=== PATIENT | female | born 1995 | race Caucasian/White ===

== ENCOUNTER 2019-03-08 19:47 | Emergency (ER) | payer SELFPAY ==
--- NOTE | 2019-03-08 20:46 | ER ---
Nurse's Notes [facility] Name: Lucinda Chaudhari Age: 23 yrs Sex: Female : 1995 Arrival Date: 03/08/2019 Time: 19:50 Bed 15 Private MD: Diagnosis: Otitis media, unspecified, right ear;Cough Presentation: 03/08 19:54 Presenting complaint: Patient states: OOT meds at noon. pt c/o "clogged ears X3 days" ak1 pain to bilateral ears started today. 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 Transition of care: patient was not received from another setting of care. Onset of symptoms is unknown. Risk Assessment: Do you want to hurt yourself or someone else? Patient reports no desire to harm self or others. Care prior to arrival: None. 19:54 Method Of Arrival: Ambulatory ak1 19:54 Acuity: PROMISE 4 ak1 Triage Assessment: 19:55 General: Appears in no apparent distress. Behavior is calm, cooperative. ak1 19:56 Pain: Complains of pain in right ear and left ear. 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 LMP 10/2018 ak1 Historical: - Allergies: 19:55 No Known Allergies; ak1 - Home Meds: 19:55 None [Active]; ak1 - PMHx: 19:55 None; ak1 - PSHx: 19:55 None; ak1 - Immunization history:: Adult Immunizations up to date. - Social history:: Smoking status: Patient/guardian denies using tobacco. - Ebola Screening: : No symptoms or risks identified at this time. Screenin:56 Abuse screen: Denies threats or abuse. Denies injuries from another. Nutritional ak1 screening: No deficits noted. Tuberculosis screening: No symptoms or risk factors identified. Fall Risk None identified. Assessment: 20:00 General: Appears in no apparent distress. uncomfortable, Behavior is calm, cooperative, jb4 appropriate for age. Pain: Complains of pain in right ear and left ear. Neuro: Level of Consciousness is awake, alert, obeys commands, Oriented to person, place, time, situation. Cardiovascular: Patient's skin is warm and dry. Respiratory: Airway is patent Respiratory effort is even, unlabored, Respiratory pattern is regular, symmetrical. GI: No signs and/or symptoms were reported involving the gastrointestinal system. : No signs and/or symptoms were reported regarding the genitourinary system. EENT: Throat is clear is pink. Derm: Skin is intact, Skin is pink, warm \\T\\ dry. Musculoskeletal: Circulation, motion, and sensation intact. 21:20 Reassessment: Patient appears in no apparent distress at this time. Patient and/or jb4 family updated on plan of care and expected duration. Pain level reassessed. Patient is alert, oriented x 3, equal unlabored respirations, skin warm/dry/pink. holding pt to further monitor temp before discharge. 21:37 Reassessment: Patient appears in no apparent distress at this time. Patient and/or jb4 family updated on plan of care and expected duration. Pain level reassessed. Patient is alert, oriented x 3, equal unlabored respirations, skin warm/dry/pink. Patient states feeling better. Vital Signs: 19:55 BP 156 / 70; Pulse 114; Resp 20; Temp 100.5(O); Pulse Ox 97% on R/A; Weight 74.84 kg ak1 (R); Height 5 ft. 2 in. (157.48 cm) (R); Pain 8/10; 21:15 BP 130 / 81; Pulse 118; Resp 18; Temp 102.4(O); Pulse Ox 99% on R/A; jb4 21:37 BP 135 / 86; Pulse 109; Resp 18; Temp 100.8(O); Pulse Ox 97% on R/A; jb4 19:55 Body Mass Index 30.18 (74.84 kg, 157.48 cm) ak1 21:15 Provider notified of temp, see MAR for orders. jb4 ED Course: 19:50 Patient arrived in ED. do 19:55 Triage completed. ak1 19:55 Arm band placed on Patient placed in an exam room, on a stretcher, Patient notified of ak1 wait time. 20:00 Patient has correct armband on for positive identification. Bed in low position. Call jb4 light in reach. Side rails up X 1. Pulse ox on. NIBP on. 20:01 Bob Cedeno PA is PHCP. cp 20:01 Bob Roberts MD is Attending Physician. cp 20:39 Leonides Gutierrez, RN is Primary Nurse. jb4 21:38 No provider procedures requiring assistance completed. Patient did not have IV access jb4 during this emergency room visit. Administered Medications: 20:45 Drug: Tylenol 1000 mg Route: PO; jb4 21:40 Follow up: Response: No adverse reaction; Temperature is decreased; Pain is decreased jb4 21:15 Drug: Motrin 800 mg Route: PO; jb4 21:40 Follow up: Response: No adverse reaction; Temperature is decreased; Pain is decreased jb4 Outcome: 20:45 Discharge ordered by MD. cp 21:38 Discharged to home ambulatory. jb4 21:38 Condition: stable 21:38 Discharge instructions given to patient, Instructed on discharge instructions, follow up and referral plans. medication usage, Demonstrated understanding of instructions, follow-up care, medications, Prescriptions given X 3. 21:41 Patient left the ED. jb4 Signatures: Kaylene Spencer RN RN ak1 Bob Cedeno PA PA cp Ogletree, Danielle do Bryson, James, RN RN jb4
--- NOTE | 2019-03-08 20:46 | EDPHYS ---
Physician Documentation [facility] Name: Lucinda Chaudhari Age: 23 yrs Sex: Female : 1995 Arrival Date: 03/08/2019 Time: 19:50 Bed 15 Private MD: ED Physician Bob Roberts HPI: 03/08 20:20 This 23 yrs old Female presents to ER via Ambulatory with complaints of Ear cp Pain. 20:20 The patient presents with pain, that is acute. The complaints affect the right ear. cp Onset: The symptoms/episode began/occurred today. 20:20 Associated signs and symptoms: Pertinent positives: cough, nasal congestion times 4 cp days, fever, Pertinent negatives: shortness of breath, vomiting. 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 LMP 10/2018 ak1 Historical: - Allergies: 19:55 No Known Allergies; ak1 - Home Meds: 19:55 None [Active]; ak1 - PMHx: 19:55 None; ak1 - PSHx: 19:55 None; ak1 - Immunization history:: Adult Immunizations up to date. - Social history:: Smoking status: Patient/guardian denies using tobacco. - Ebola Screening: : No symptoms or risks identified at this time. ROS: 20:30 Constitutional: Positive for fever, Negative for body aches, poor PO intake. cp 20:30 Eyes: Negative for injury, pain, redness, and discharge. cp 20:30 ENT: Positive for ear pain, rhinorrhea, Negative for drainage from ear(s). 20:30 Neck: Negative for pain with movement, pain at rest, stiffness. 20:30 Respiratory: Positive for cough, Negative for wheezing. 20:30 Abdomen/GI: Negative for abdominal pain, vomiting, diarrhea, constipation. 20:30 Skin: Negative for rash. 20:30 Neuro: Negative for altered mental status, headache. 20:30 All other systems are negative. Exam: 20:33 Constitutional: The patient appears in no acute distress, alert, awake, non-toxic, well cp developed, well nourished, febrile. 20:33 Head/Face: Normocephalic, atraumatic. cp 20:33 Eyes: Periorbital structures: appear normal, Conjunctiva: normal, no exudate, no injection, Lids and lashes: appear normal, bilaterally. 20:33 ENT: External ear(s): are unremarkable, Ear canal(s): are normal, clear, TM's: erythema, that is moderate, on the right, Nose: is normal, Mouth: Lips: moist, Oral mucosa: moist, Posterior pharynx: Airway: no evidence of obstruction, patent, Tonsils: with erythema, no exudate, swelling, is not appreciated, erythema, that is mild, exudate, is not appreciated, Voice: is normal. 20:33 Neck: ROM/movement: is normal, is supple, without pain, no range of motions limitations, no meningismus, no nuchal rigidity. 20:33 Chest/axilla: Inspection: normal. 20:33 Cardiovascular: Rate: tachycardic. 20:33 Respiratory: the patient does not display signs of respiratory distress, Respirations: normal, no use of accessory muscles, no retractions, no splinting, no tachypnea, labored breathing, is not present, Breath sounds: are clear throughout, no decreased breath sounds, no stridor, no wheezing. Vital Signs: 19:55 BP 156 / 70; Pulse 114; Resp 20; Temp 100.5(O); Pulse Ox 97% on R/A; Weight 74.84 kg ak1 (R); Height 5 ft. 2 in. (157.48 cm) (R); Pain 8/10; 21:15 BP 130 / 81; Pulse 118; Resp 18; Temp 102.4(O); Pulse Ox 99% on R/A; jb4 21:37 BP 135 / 86; Pulse 109; Resp 18; Temp 100.8(O); Pulse Ox 97% on R/A; jb4 19:55 Body Mass Index 30.18 (74.84 kg, 157.48 cm) ak1 21:15 Provider notified of temp, see MAR for orders. jb4 MDM: 20:01 Patient medically screened. cp 20:30 Differential diagnosis: otitis media, otitis externa, strep throat, influenza. cp 20:44 Data reviewed: vital signs, nurses notes, and as a result, I will discharge patient. cp 20:44 Counseling: I had a detailed discussion with the patient and/or guardian regarding: the cp historical points, exam findings, and any diagnostic results supporting the discharge/admit diagnosis, to return to the emergency department if symptoms worsen or persist or if there are any questions or concerns that arise at home. Response to treatment: the patient's symptoms have mildly improved after treatment, and as a result, I will discharge patient. Administered Medications: 20:45 Drug: Tylenol 1000 mg Route: PO; jb4 21:40 Follow up: Response: No adverse reaction; Temperature is decreased; Pain is decreased jb4 21:15 Drug: Motrin 800 mg Route: PO; jb4 21:40 Follow up: Response: No adverse reaction; Temperature is decreased; Pain is decreased jb4 Disposition: 03/08/19 20:45 Discharged to Home. Impression: Otitis media, unspecified, right ear, Cough. - Condition is Stable. - Discharge Instructions: Otitis Media, Adult, Cough, Adult. - Prescriptions for Amoxicillin 875 mg Oral Tablet - take 1 tablet by ORAL route every 12 hours for 10 days; 20 tablet. Ibuprofen 800 mg Oral Tablet - take 1 tablet by ORAL route every 8 hours As needed take with food; 30 tablet. Tessalon Perles 100 mg Oral Capsule - take 2 capsule by ORAL route every 8 hours As needed; 20 capsule. - Medication Reconciliation Form, Thank You Letter, Antibiotic Education, Prescription Opioid Use form. - Follow up: Private Physician; When: 2 - 3 days; Reason: Worsening of condition. - Problem is new. - Symptoms have improved. Addendum: 03/13/2019 10:50 Co-signature as Attending Physician, Bob Roberts MD I agree with the assessment and c jasmine plan of care. Signatures: Bob Roberts MD MD cha Krenek, Amber RN RN ak1 Bob Cedeno PA PA cp Leonides Gutierrez, BIANCA RN jb4 Corrections: (The following items were deleted from the chart) 03/08 21:41 20:45 03/08/2019 20:45 Discharged to Home. Impression: Otitis media, unspecified, right jb4 ear; Cough. Condition is Stable. Forms are Medication Reconciliation Form, Thank You Letter, Antibiotic Education, Prescription Opioid Use. Follow up: Private Physician; When: 2 - 3 days; Reason: Worsening of condition. Problem is new. Symptoms have improved. cp
[2019-03-08] MEDS ORDERED: ACETAMINOPHEN 500 MG TAB ONE (20:55)
[2019-03-08] MEDS ORDERED: IBUPROFEN 400 MG TAB ONE (21:19)
[2019-03-08 22:02] VITALS: BP 135/86; TEMP 100.8; O2SAT 97
== END 2019-03-08 21:41 | disposition home or self-care (01) ==
LOC: ER 19:47
DX: H66.91 Otitis media, unspecified, right ear (principal); R05 Cough
CPT/HCPCS: 99283